=== PATIENT | male | born 1990 | race Caucasian/White ===

== ENCOUNTER 2023-02-06 03:12 | Emergency (ER) | payer OTHER, SELFPAY ==
[2023-02-06 03:18] VITALS: BP 158/103; PULSE 94; RESP 18; TEMP 36.8; O2SAT 98; BMI 22.9
--- NOTE | 2023-02-06 03:42 | ED.BACK1 ---
HPI - Back Pain/Injury General Chief Complaint: Back Pain/Injury Stated Complaint: BACK PAIN Time Seen by Provider: 02/06/23 03:16 Source: patient Mode of arrival: walk-in History of Present Illness HPI Narrative: This 33-year-old male presents for evaluation of low back pain that is radiating up to his upper back and neck. The patient gives a recent history of helping a friend's son move last and Monday. He thinks that he strained his back. He has been trying to separate through the pain by taking ibuprofen and staying active. He was at work tonight, he works painting large equipment and had to leave work due to the pain. He denies any weakness numbness or tingling. He has not had any bowel or bladder dysfunction. There is no radiation of the pain in his back into his chest or abdomen. There is no radiation into his buttocks or legs. He denies any injury. He has no saddle anesthesia. He has not had a fever. MD elicited complaint: Reports back pain Onset (ago): day(s) (2) Quality: Reports aching and throbbing Location: Reports lumbar spine and thoracic spine Radiation: Reports none Related Data Home Medications Medication Instructions Recorded Confirmed No Known Home Medications 02/06/23 02/06/23 Allergies Allergy/AdvReac Type Severity Reaction Status Date / Time No Known Drug Allergies Allergy Verified 02/06/23 03:24 Review of Systems ROS Status of ROS 10 or more systems reviewed and unremarkable except as noted in history and below [facility] Medical History (Updated 02/06/23 @ 03:55 by Laila Banks MD) Social History Smoking status: Former smoker Exam Narrative Exam Narrative: Nurses note and vital signs reviewed and patient is not hypoxic. General: The patient appears well and in no apparent distress. Patient is resting comfortably on cart. He moves easily about the cart. He is ambulatory with a steady gait, Skin: Warm, dry, no pallor noted. There is no rash noted. Head: Normocephalic, atraumatic Eye: Normal conjunctiva, no drainage, EOMI. PERRL Ears, Nose, Mouth, and Throat: oral mucosa is moist. Cardiovascular: Regular Rate and Rhythm Respiratory: Patient is in no distress, no accessory muscle use, lungs are clear to auscultation, no wheezing, rales or rhonchi Back: non-tender, no CVA tenderness bilaterally to percussion.There is no midline vertebral bony tenderness or step-off. There is tenderness in the bilateral lumbar region with no midline bony vertebral tenderness skin rash or appreciable muscle spasm. Patient's thoracic and lumbar spines reevaluated with him standing and bending forward. There is no rib hump or sinus scoliosis. GI: Normal bowel sounds, no tenderness to palpation, no masses appreciated. No rebound, guarding, or rigidity noted. Musculoskeletal: The patient has no evidence of calf tenderness, no pitting edema, symmetrical pulses noted bilaterally Neurological: A&O x4, normal speech, Upper and lower extremity strength and sensation is intact. Deep tendon reflexes are brisk and equal bilaterally. There is no saddle anesthesia. Psychiatric: Cooperative Constitutional Vital Signs, click to edit/add: Last Vital Signs Temp 98.2 F 02/06/23 03:18 Pulse 94 H 02/06/23 03:18 Resp 18 02/06/23 03:18 BP 158/103 H 02/06/23 03:18 Pulse Ox 98 02/06/23 03:18 O2 Del Method Room Air 02/06/23 03:18 Course Vital Signs Vital signs: Vital Signs Temperature 98.2 F 02/06/23 03:18 Pulse Rate 94 H 02/06/23 03:18 Respiratory Rate 18 02/06/23 03:18 Blood Pressure 158/103 H 02/06/23 03:18 Pulse Oximetry 98 02/06/23 03:18 Oxygen Delivery Method Room Air 02/06/23 03:18 Temperature 98.2 F 02/06/23 03:18 Pulse Rate 94 H 02/06/23 03:18 Respiratory Rate 18 02/06/23 03:18 Blood Pressure 158/103 H 02/06/23 03:18 Pulse Oximetry 98 02/06/23 03:18 Oxygen Delivery Method Room Air 02/06/23 03:18 MDM - Back Pain/Injury MDM Narrative Medical decision making narrative: 33-year-old male presents for evaluation of low back pain that is spreading up into his thoracic area after helping a friend son to move last and Monday. He denies any injury. He has no neurologic symptoms associated with this back pain. He has been using ibuprofen without relief. He went to work tonight and had to leave work after several hours due to the discomfort in his back. He has no weakness, numbness, tingling, no fever, no history of drug use, I do not appreciate any specific muscle spasm. Do not appear to be related to a kidney stone. He was medicated emergency department with IM Toradol, IM Norflex, Zofran and [place]. [facility] report was negative for any activity. He will be discharged home with Rx for flexeril, norco and 600mg ibuprofen. Differential Diagnosis Differential diagnosis: Likely strain of lumbar region and thoracic back pain Discharge Plan Discharge Chief Complaint: Back Pain/Injury Clinical Impression: Strain of lumbar region, Thoracic back pain Patient Disposition: Home, Self-Care Time of Disposition Decision: 03:54 Condition: Good Prescriptions / Home Meds: No Action No Known Home Medications Instructions: Low Back Strain (ED), Acute Low Back Pain (ED), Back Pain (ED), Lower Back Exercises (ED) Stand Alone Forms: Portal Instructions
[2023-02-06] MEDS: KETOROLAC TROMETHAMINE 60 MG/2 ML VIAL IM (04:04)
[2023-02-06] MEDS: HYDROCODONE/ACETAMINOPHEN 5-325 MG TABLET 1 TAB PO (04:04)
[2023-02-06] MEDS: ORPHENADRINE 60 MG/ 2 ML VIAL IM (04:04)
[2023-02-06] MEDS: ONDANSETRON 4 MG RAPDIS TABLET SL (04:04)
== END 2023-02-06 04:24 | disposition home or self-care (01) ==
PROVIDERS: Emergency Provider Emergency Medicine
DX: S39.012A Strain of muscle, fascia and tendon of lower back, initial encounter (principal); M54.6 Pain in thoracic spine; X50.9XXA Other and unspecified overexertion or strenuous movements or postures, initial encounter; Z87.891 Personal history of nicotine dependence
CPT/HCPCS: 96372; 99284